=== PATIENT | male | born 2000 | race Caucasian/White ===

== ENCOUNTER 2020-03-05 23:28 | Emergency (ER) | payer MEDICAID ==
[~2020-03-05 23:28] MED LIST: predniSONE 10 MG Tab ONE
[2020-03-05] MEDS ORDERED: Ketorolac 60 MG/2 ML SDV IM ONE (23:46)
[2020-03-05] MEDS ORDERED: Ketorolac 60 MG/2 ML SDV ONE (23:53)
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
== END 2020-03-06 00:10 | disposition home or self-care (01) ==
LOC: LB.ED 23:28
DX: S54.92XA Injury of unspecified nerve at forearm level, left arm, initial encounter (principal); S54.91XA Injury of unspecified nerve at forearm level, right arm, initial encounter; V86.59XA Driver of other special all-terrain or other off-road motor vehicle injured in nontraffic accident, initial encounter
CPT/HCPCS: 96372; 99283; J1885; J7512